=== PATIENT | male | born 1980 | race Caucasian/White ===

== ENCOUNTER 2020-05-31 18:04 | Emergency (ER) | payer OTHER, SELFPAY ==
[2020-05-31 18:56] VITALS: BP 140/78; PULSE 61; RESP 18; TEMP 37.1; O2SAT 95; BMI 26.9
--- NOTE | 2020-05-31 19:31 | XR_ITS ---
EXAMINATION: LEFT SHOULDER AND RIGHT KNEE. CLINICAL INFORMATION: Left shoulder pain COMPARISON: None TECHNIQUE: 4 views left shoulder and 4 views right knee FINDINGS: LEFT SHOULDER: There is no visible fracture, dislocation or subluxation seen. AC joint and the glenohumeral joint space is normal. The soft tissues are normal. RIGHT KNEE: The tricompartment joint space is maintained normal. No loose bodies, joint effusion seen. There is minimal inferior patellar spurring. No fracture or dislocation seen. XR/XR knee RT 4V IMPRESSION: Unremarkable left shoulder exam. No acute fracture or dislocation. Unremarkable right knee exam. No acute fracture or dislocation.
--- NOTE | 2020-05-31 19:31 | XR_ITS ---
EXAMINATION: LEFT SHOULDER AND RIGHT KNEE. CLINICAL INFORMATION: Left shoulder pain COMPARISON: None TECHNIQUE: 4 views left shoulder and 4 views right knee FINDINGS: LEFT SHOULDER: There is no visible fracture, dislocation or subluxation seen. AC joint and the glenohumeral joint space is normal. The soft tissues are normal. RIGHT KNEE: The tricompartment joint space is maintained normal. No loose bodies, joint effusion seen. There is minimal inferior patellar spurring. No fracture or dislocation seen. XR/XR shoulder LT min 2V IMPRESSION: Unremarkable left shoulder exam. No acute fracture or dislocation. Unremarkable right knee exam. No acute fracture or dislocation.
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
== END 2020-05-31 20:36 | disposition home or self-care (01) ==
PROVIDERS: Emergency Provider Emergency Medicine Emergency Medical Services
DX: M25.512 Pain in left shoulder (principal); M25.561 Pain in right knee; M54.5 Low back pain; M25.572 Pain in left ankle and joints of left foot; M25.571 Pain in right ankle and joints of right foot; Z79.899 Other long term (current) drug therapy
CPT/HCPCS: 73030; 73564; 99283; 99284

== ENCOUNTER → 2020-12-16 15:28 | Outpatient (BNVA) | payer OTHER, SELFPAY | PROVIDERS: Visit Provider Nurse Practitioner Family | DX: G90.523 Complex regional pain syndrome I of lower limb, bilateral (principal); R20.3 Hyperesthesia; M62.472 Contracture of muscle, left ankle and foot; M62.471 Contracture of muscle, right ankle and foot | CPT/HCPCS: 99202 ==

== ENCOUNTER → 2021-01-21 15:36 | Outpatient (BNVA) | payer OTHER, SELFPAY | PROVIDERS: Visit Provider Nurse Practitioner Family | DX: G90.523 Complex regional pain syndrome I of lower limb, bilateral (principal); Z79.899 Other long term (current) drug therapy | CPT/HCPCS: 99212 ==

== ENCOUNTER 2021-09-05 22:41 | Emergency (ER) | payer OTHER, SELFPAY ==
--- NOTE | ~2021-09-05 | XR_ITS ---
EXAMINATION: XR CHEST CLINICAL INFORMATION: Cough. Chills. COMPARISON: None TECHNIQUE: 2 views of the chest were obtained. FINDINGS: Normal appearance of the cardiomediastinal structures. No effusions or pneumothoraces. No focal pulmonary consolidation of the lungs. Normal pattern of pulmonary vasculature. XR/XR chest 2V IMPRESSION: *No acute cardiopulmonary abnormalities.
[2021-09-05 22:52] VITALS: BP 117/79; PULSE 88; RESP 14; TEMP 36.9; O2SAT 99; BMI 26.6
[2021-09-05 23:16] LABS: IDNOW Serial# 55D5AD1C; Influenza A Negative (Negative); Influenza B2 Negative (Negative)
[2021-09-05 23:17] LABS: COVID-19 Test Negative (Negative)
--- NOTE | 2021-09-06 00:53 | ED_ITS ---
HPI - Fever General Chief Complaint: Fever Stated Complaint: fever,headache,coughing Time Seen by Provider: 09/06/21 00:13 Source: patient Mode of arrival: ambulatory History of Present Illness HPI Narrative: 41-year-old male with history of asthma, current everyday smoker, otherwise denies any alcohol or illicit drug use to include marijuana and states that for the past 2 weeks he has had subjective fevers, chills with sweating and body aches. Otherwise, he denies any GI or symptoms, recent travel, abdominal pain and denies any current respiratory difficulty other than coughing. He was recently seen by his primary care provider and has lab work ordered which will be completed on Tuesday. Related Data Home Medications Medication Instructions Recorded Confirmed acetaminophen 500 mg tablet 1,000 mg PO Q6H PRN 12/16/20 01/21/21 (Tylenol Extra Strength) ibuprofen 800 mg tablet 800 mg PO TID 12/16/20 01/21/21 albuterol sulfate 90 mcg/actuation 2 puff INHALATION Q4H PRN 09/05/21 09/05/21 aerosol inhaler (ProAir HFA) fluticasone propionate 110 INHALATION 09/05/21 mcg/actuation HFA aerosol inhaler (Flovent HFA) Previous Rx's Medication Instructions Recorded tizanidine 2 mg tablet 2 mg PO BEDTIME PRN #30 tab 01/09/21 duloxetine 30 mg capsule,delayed 30 mg PO DAILY #30 cap 01/23/21 release Allergies Allergy/AdvReac Type Severity Reaction Status Date / Time No Known Allergies Allergy Verified 01/21/21 15:43 Review of Systems Review of Systems: Pertinent positives and negatives as stated in HPI 10 point review of systems is otherwise negative. PMFSH Past Medical History Source: nursing notes reviewed Social History Social History Advance Directives: No Physical Exam Vital Signs: Vital Signs: Last Vital Signs Temp 98.5 F 09/05/21 22:52 Pulse 88 09/05/21 22:52 Resp 14 09/05/21 22:52 BP 117/79 09/05/21 22:52 Pulse Ox 99 09/05/21 22:52 BMI result Body Mass Index 26.6 VITAL SIGNS: Reviewed. GENERAL: Well developed, well nourished, in no acute distress. HEAD: Normocephalic/atraumatic EYES: PERRLA, EOMI EARS: Ext canals without abnormality, TMs non-bulging and non-erythematous NOSE: Nares patent bilateral OROPHARYNX: no oral lesions noted, posterior pharynx clear and non-erythematous without noted tonsillar enlargement/erythema/exudates NECK: Supple, no adenopathy LUNGS: Normal breath sounds, no tachypnea/wheeze/rhonchi/rales. SpO2<99> CARDIOVASCULAR: Regular rate and rhythm without noted murmurs ABDOMEN: Soft, non-tender, non-distended with bowel sounds. MUSCULOSKELETAL: No tenderness, deformities, or effusions noted on gross inspection. EXTREMITIES: No cyanosis, clubbing or edema. SKIN: Inspection of the skin reveals no rashes, but noted to be diaphoretic NEUROLOGIC: Alert and oriented x 4. Strength and sensation to light touch were grossly intact x 4. Course Course Course Narrative: 41-year-old male with history and clinical presentation initially felt to be viral in nature but on review viral testing there are no acute findings, no evidence to suggest asthma exacerbation and suspect the possibility community- acquired pneumonia. Review of all investigations negative for evidence to suggest COVID-19 or influenza infection, chest x-ray is otherwise benign but patient was strongly encouraged to follow-up with his primary care provider as well as pursue the laboratory studies that are ordered for Tuesday. He is otherwise discharged home in stable condition and noted to be afebrile. MDM - Fever Lab Data Labs: Lab Results 09/05/21 09/05/21 Range/Units 22:55 22:55 COVID-19 (KAREN) Negative (Negative) COVID-19 Clin Com See Note Influenza Type A (ZAK) Negative (Negative) Influenza Type B (ZAK) Negative (Negative) Influenza A & B Note See Note Discharge Plan Discharge Clinical Impression: Viral syndrome Patient Disposition: Home, Self-Care Instructions: Viral Syndrome (ED) Additional Instructions: 1. Please follow-up with your primary care provider in the next 2-3 days for re- evaluation. 2. Please obtain the lab work that has been ordered on Tuesday. Return to the ER for worsening symptoms. Prescriptions: No Action tizanidine 2 mg tablet 2 mg PO BEDTIME PRN (Reason: muscle spasticity) Qty: 30 3RF Rx Instructions: Start with 1/2 tab as medication can be sedating. Can take 1-2 pills QHS. duloxetine 30 mg capsule,delayed release(DR/EC) 30 mg PO DAILY Qty: 30 0RF albuterol sulfate [ProAir HFA] 90 mcg/actuation HFA aerosol inhaler 2 puff inhalation Q4H PRN (Reason: wheezing) 0RF Flovent HFA 110 mcg/actuation HFA aerosol inhaler inhalation 0RF acetaminophen [Tylenol Extra Strength] 500 mg tablet 1,000 mg PO Q6H PRN0RF ibuprofen 800 mg tablet 800 mg PO TID 0RF
[2021-09-06] MEDS: Ibuprofen 400 MG TABLET PO (01:04)
[2021-09-06] MEDS: Acetaminophen 325 MG TABLET 975 MG PO (01:05)
--- NOTE | 2021-09-06 01:30 | PC.NURSE ---
CARE TRANSFERRED AND REPORT GIVEN TO CHAYITO CUMMINGS.
[2021-09-06 02:00] VITALS: BP 115/82; PULSE 60; RESP 16; TEMP 36.6; O2SAT 98
== END 2021-09-06 02:12 | disposition home or self-care (01) ==
PROVIDERS: Emergency Provider Student in an Organized Health Care Education/Training Program
DX: B34.9 Viral infection, unspecified (principal); J45.909 Unspecified asthma, uncomplicated; F17.200 Nicotine dependence, unspecified, uncomplicated; Z20.822 Contact with and (suspected) exposure to COVID-19
CPT/HCPCS: 71046; 87502; 87635; 99283; 99284